=== PATIENT | female | born 1990 | race Caucasian/White ===

== ENCOUNTER 2021-11-08 09:11 | Emergency (ER) | payer OTHER, SELFPAY ==
[2021-11-08 09:16] VITALS: BP 135/103; PULSE 97; RESP 18; TEMP 36.6; O2SAT 99; BMI 44.3
--- NOTE | 2021-11-08 10:02 | ED_ITS ---
HPI - Eye Problem General Chief complaint: Eye Problems Stated complaint: Infection right eye, can't see Time Seen by Provider: 11/08/21 09:16 History of Present Illness HPI Narrative: Kesha is a 31-year-old female patient who presents emergency department via private vehicle with complaints of eye redness, drainage, and previous diagnosis of HSV keratitis. The patient has been seen and evaluated by Optometry with previous treatment in August and restart of treatment on 11/06 due to recurrence of symptoms. The patient states that she has completed a course of Valtrex. In addition, she has been using Zirgan. She reports worsening of condition and persistence of symptoms as well as new loss of vision in the right eye. She also reports temporal headache. Related Data Home Medications Medication Instructions Recorded Confirmed ganciclovir 0.15 % eye gel (Zirgan) OPHTHALMIC (EYE) 11/08/21 valacyclovir 1 gram tablet 1,000 mg Q8H 11/08/21 Allergies Allergy/AdvReac Type Severity Reaction Status Date / Time No Known Allergies Allergy Verified 11/08/21 09:25 Review of Systems Const: Denies: fever, chills, fatigue or malaise Eyes: Reports: change in vision, blurry vision, eye discomfort and increased production of tears ENMT: Denies: throat pain, neck pain, mouth pain, swelling of lips/tongue, nasal discharge or nasal congestion Cardio: Denies: chest pain or shortness of breath with exertion Resp: Denies: shortness of breath GI: Denies: abdominal pain, nausea or vomiting Musculo: Denies: neck pain Integ/Breast: Reports: skin tenderness; Denies: sores or new lesion Neuro: Reports: headache; Denies: dizziness or confusion Endo: Denies: fatigue PFSH PFSH Social History Smoking Status: Never smoker Second hand tobacco smoke exposure: No How often do you have a drink containing alcohol: never AUDIT-C Alcohol total score: 0 Non-prescribed substance use: denies use service: No Exam Const: Vital Signs, click to edit/add: Vital Signs - 24 hr 11/08/21 09:16 Temperature 97.9 F Pulse Rate [Left P ulse Oximeter] 97 Respiratory Rate 18 Blood Pressure [Ri ght Upper Arm] 135/103 H Pulse Oximetry 99 Documenting provider has reviewed patient's vital signs: yes Common normals: oriented x3, no limitations, healthy appearing, alert and well nourished General appearance: cooperative, well kempt, well developed and in distress (pain reported) moderate Nutritional appearance: obese Orientation/consciousness: Yes awake, Yes oriented to person, Yes oriented to place and Yes oriented to time HENMT: Common normals: normocephalic, head/scalp atraumatic, hearing grossly normal bilaterally and TM's normal bilaterally Head and scalp: normal to inspection, normocephalic and atraumatic Tympanic membrane: TM's normal bilaterally Eye: Common normals: PERRL and EOMs intact bilaterally Visual acuity: visual acuity right eye (decreased, see nursing notes) Eyelid: eyelid abnormal (inflammed, swollen) right upper eyelid and right lower eyelid Conjunctiva: conjunctiva abnormal (erythematous, matted with discharge) right Pupil: PERRL Neck & C-Spine: Common normals: full ROM, no lymphadenopathy and supple Resp: Common normals: normal respiratory effort, no retractions, no use of accessory muscles and clear to auscultation bilaterally Effort & inspection: able to speak in complete sentences Auscultation: clear to auscultation bilaterally Cardio: Common normals: regular rate, regular rhythm, S1 normal heart sound, S2 normal heart sound, no gallops and no murmurs Rate: regular rate Rhythm: regular rhythm Heart sounds: S1 normal and S2 normal Extremity: Common normals: normal to inspection and full ROM Neuro: Common normals: oriented x3 Sensorium/orientation: awake, alert, oriented to person, oriented to place and oriented to time Psych: Common normals: mental status grossly normal, thought process normal and cooperative Appearance: well kempt Thought process: normal thought process Skin: Common normals: no rashes or lesions noted General skin exam: no rashes or lesions noted Course Course Hospital Course: Kesha presented to the ED with complaints of persistent and recurrent conjunctivitis on the right eye, now with vision changes. 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 Due to severity of symptoms, ophthalmology was consulted and Dr Louie is agreeable to see patient for consideration of additional evaluation and treatment, including potentially surgical intervention. The patient will transfer directly to Dr Louie's office via POV. No changes in medication or treatment has been performed in anticipation of treatment and evaluation by Dr Louie. Vital Signs Vital signs: Initial Vital Signs Temperature 97.9 F 11/08/21 09:16 Temperature Source Temporal Artery Scan 11/08/21 09:16 Pulse Rate 97 11/08/21 09:16 Pulse Rhythm 11/08/21 09:16 Pulse Strength 3+ Normal 11/08/21 09:16 Respiratory Rate 18 11/08/21 09:16 Blood Pressure 135/103 H 11/08/21 09:16 Blood Pressure Mean 113 11/08/21 09:16 Blood Pressure Position Sitting 11/08/21 09:16 Pulse Oximetry 99 11/08/21 09:16 Oxygen Delivery Method 11/08/21 09:16 Vital Signs Temperature 97.9 F 11/08/21 09:16 Pulse Rate 97 11/08/21 09:16 Respiratory Rate 18 11/08/21 09:16 Blood Pressure 135/103 H 11/08/21 09:16 Pulse Oximetry 99 11/08/21 09:16 Temperature 97.9 F 11/08/21 09:16 Pulse Rate 97 11/08/21 09:16 Respiratory Rate 18 11/08/21 09:16 Blood Pressure 135/103 H 11/08/21 09:16 Pulse Oximetry 99 11/08/21 09:16 MDM - Eye Problem Differential Diagnosis Differential diagnosis: Likely corneal abrasion, conjunctivitis and acute iritis Lab Data Labs: Lab Results 11/08/21 11/08/21 11/08/21 Range/Units 10:24 10:24 10:24 WBC 9.60 (4.50-11.00) K/uL RBC 5.25 H (4.00-5.20) m/uL Hgb 14.4 (12.0-16.0) gm/dL Hct 44.3 (33.0-51.0) % MCV 84 (80-100) fL MCH 27 (26-34) pg MCHC 33 (32-36) gm/dL RDW Coeff of Tonia 13.6 (11.5-15.5) % Plt Count 366 (140-440) K/uL Neut % (Auto) 70.7 (42.0-72.0) % Lymph % (Auto) 21.4 (20-44) % [place] % (Auto) 6.6 (0.0-11.0) % Eos % (Auto) 1.0 (0.0-7.0) % Baso % (Auto) 0.3 (0.0-3.0) % Neut # (Auto) 6.79 (1.7-7.0) K/uL Lymph # (Auto) 2.05 (0.90-2.90) K/uL [place] # (Auto) 0.60 (0.00-0.90) K/UL Eos # (Auto) 0.10 (0.00-0.50) K/uL Baso # (Auto) 0.03 (0.00-0.30) K/uL Abs Immat Gran (auto) 0.00 (0.00-0.30) K/uL ESR 15 (2-20) mm/hr Sodium 138 (135-149) mmol/L Potassium 4.3 (3.6-5.1) mmol/L Chloride 106 (96-114) mmol/L Carbon Dioxide 22 (20-32) mmol/L BUN 9 (5-24) mg/dL Creatinine 0.7 (0.5-1.5) mg/dL Estimated Creat Clear 120.58 Estimated GFR 118 ml/min Glucose 94 (60-115) mg/dL Calcium 9.0 (8.4-10.6) mg/dL Total Bilirubin 0.3 (0.1-1.5) mg/dL AST 25 (12-35) U/L ALT 35 (4-35) U/L Alkaline Phosphatase 87 (40-150) U/L Total Protein 7.9 (6.0-8.3) g/dL Albumin 4.3 (3.3-5.0) g/dL Discharge Plan Discharge Clinical Impression: Temporal headache, Keratitis Patient Disposition: Home, Self-Care Condition: Stable Instructions: Keratitis (ED) Additional Instructions: Thank you for choosing [facility] for your care today. Patient is encouraged to transfer directly to Dr Louie's office for further evaluation and treatment recommendations. You should use warm compresses and time as treatment. Your discharge may be worse for 3 to 5 days before getting better on its own. Advised patient irritation may worsen prior to improvement with eye drops. May use artificial tears for lubrication and symptom relief. Consider compress 2-4 times daily as needed for symptom relief. It's important you use good hygiene. Warning signs of photophobia (pain with light), severe headache, or change in vision are red flags that should prompt urgent local medical evaluation. If new or worsening symptoms develop or you have any concerns in the meantime, please call your primary care clinic or return to the ER for re-evaluation. Activity Level: Activity as Tolerated Discharge Diet: Regular Prescriptions: No Action valacyclovir 1 gram tablet 1,000 mg Q8H 0RF Label Comments: TAKE 1 TABLET BY MOUTH THREE TIMES A DAY Zirgan 0.15 % gel OPHTHALMIC (EYE) 0RF Label Comments: INSTILL 1 GM IN RIGHT EYE EVERY 3 HOURS Follow Up/Referrals: Provider,Not a Local [Primary Care Provider] - Stand Alone Forms: [facility] Info Instructions
--- NOTE | 2021-11-08 10:26 | ED.NURSE ---
Labs collected. Will call with results. Pt being discharged and sent to [facility]
[2021-11-08 10:30] LABS: Basophils Absolute Auto 0.03 K/uL (0.00-0.30); Basophils Percent Auto 0.3 % (0.0-3.0); Hematocrit 44.3 % (33.0-51.0); Hemoglobin* 14.4 gm/dL (12.0-16.0); Lymphocytes Absolute Auto 2.05 K/uL (0.90-2.90); Lymphocytes Percent Auto 21.4 % (20-44); Mean Corpuscular HGB Conc 33 gm/dL (32-36); Mean Corpuscular Hemoglobin 27 pg (26-34); Mean Corpuscular Volume 84 fL (80-100); Monocytes Percent Auto 6.6 % (0.0-11.0); Neutrophils Absolute Auto 6.79 K/uL (1.7-7.0); Neutrophils Percent Auto 70.7 % (42.0-72.0); Platelet Count* 366 K/uL (140-440); RDW Coefficient of Variation % 13.6 % (11.5-15.5); Red Blood Count 5.25 m/uL (4.00-5.20)
[2021-11-08 10:38] LABS: Slide Review Reflex No
[2021-11-08 10:48] LABS: Albumin* 4.3 g/dL (3.3-5.0); Chloride* 106 mmol/L (96-114); Sodium* 138 mmol/L (135-149)
[2021-11-08 10:49] LABS: Potassium* 4.3 mmol/L (3.6-5.1)
[2021-11-08 10:51] LABS: Alanine Aminotransferase* 35 U/L (4-35); Alkaline Phosphatase* 87 U/L (40-150); Aspartate Amino Transferase* 25 U/L (12-35); Bilirubin Total* 0.3 mg/dL (0.1-1.5); Blood Urea Nitrogen* 9 mg/dL (5-24); Carbon Dioxide* 22 mmol/L (20-32); Creatinine* 0.7 mg/dL (0.5-1.5); Est. Creatinine Clearance* 120.58; Estimated Glomerular Filt Rate 118 ml/min; Glucose* 94 mg/dL (60-115); Total Protein* 7.9 g/dL (6.0-8.3)
[2021-11-08 11:19] LABS: Erythrocyte SedimentationRate* 15 mm/hr (2-20)
== END 2021-11-08 10:45 | disposition home or self-care (01) ==
PROVIDERS: Emergency Provider Family Medicine
DX: H16.101 Unspecified superficial keratitis, right eye (principal); R51.9 Headache, unspecified
CPT/HCPCS: 36415; 80053; 85025; 85651; 99281; 99283; 99284

== ENCOUNTER 2024-09-29 12:34 | Outpatient (CLI) | payer OTHER, SELFPAY ==
[2024-10-01 06:18] LABS: HPV Source Cervix; HPV, High Risk by TMA Not Detected
== END 2024-09-29 12:35 | disposition home or self-care (01) ==
PROVIDERS: Visit Provider Obstetrics & Gynecology
DX: N92.0 Excessive and frequent menstruation with regular cycle (principal); R63.5 Abnormal weight gain; R53.83 Other fatigue; Z12.4 Encounter for screening for malignant neoplasm of cervix; Z11.51 Encounter for screening for human papillomavirus (HPV); Z13.21 Encounter for screening for nutritional disorder
CPT/HCPCS: 82306; 82607; 82728; 83540; 83550; 84443; 87624; 87625; 88141; 88142

== ENCOUNTER 2024-10-01 11:19 | Outpatient (CLI) | payer OTHER, SELFPAY ==
--- NOTE | 2024-10-01 11:30 | CRLHL7_ITS ---
For Patients: As a result of the Century Cures Act, medical imaging exams and procedure reports are released immediately into your electronic medical record. You may view this report before your referring provider. If you have questions, please contact your health care provider. INDICATION: Excessive and frequent menstruation COMPARISON: None. TECHNIQUE: 2D gorman-scale and color Doppler images were acquired of the pelvis using a transabdominal and transvaginal approach. Transvaginal imaging performed to better visualize the endometrial stripe and ovaries. FINDINGS: Sonographic images demonstrate a normal size and smooth outer contour of the uterus. Uterus measures 8.5 cm in length by 4.5 cm in AP diameter by 4.8 cm in transverse dimension. The myometrium has a normal uniform echotexture. The endometrial lining measures 6.2 mm in composite thickness. Endometrial calcifications are present. The right ovary measures 4.0 x 2.5 x 2.8 cm in size and the left ovary measures 3.4 x 1.9 x 2.5 cm. The ovaries demonstrate normal arterial and venous blood flow on color Doppler analysis. There are no suspicious fluid collections within the cul-de-sac. Calcification left ovary measures 8 millimeters. Incidental hyperechoic area within the right ovary measures 11 millimeters. IMPRESSION: Endometrial thickness 6.2 millimeters. No endometrial fluid. No uterine fibroid. Dictated by Cem Barnes MD @ 10/03/2024 4:54:39 PM (Electronically Signed)
== END 2024-10-01 11:20 | disposition home or self-care (01) ==
LOC: US 11:19
PROVIDERS: Visit Provider Obstetrics & Gynecology
DX: N92.0 Excessive and frequent menstruation with regular cycle (principal); R93.89 Abnormal findings on diagnostic imaging of other specified body structures; R53.83 Other fatigue; R63.5 Abnormal weight gain
CPT/HCPCS: 76830; 76856